=== PATIENT | female | born 1945 | race Caucasian/White ===

== ENCOUNTER 2021-08-02 07:15 | Observation (INO) | payer MEDICARE ==
[2021-08-01 11:56] LABS: BASOPHILS % (AUTO) 0.6 % (0.0-5.0); EOSINOPHILS % (AUTO) 2.3 % (0.0-8.0); HEMATOCRIT 40.7 % (36-48); LYMPHOCYTES % (AUTO) 47.5 % (21.0-51.0); MEAN CORPUSCULAR HEMOGLOBIN 31.5 pg (27.0-33.0); MEAN CORPUSCULAR HGB CONC 33.4 g/dL (32.0-36.0); MEAN CORPUSCULAR VOLUME 94.2 fL (79-99); MONOCYTES % (AUTO) 6.3 % (3.0-13.0); NEUTROPHILS % (AUTO) 43.2 % (40.0-77.0); PLATELET COUNT (AUTO) 177 K/uL (130-400); RED BLOOD CELL COUNT(AUTO) 4.32 MIL/uL (4.00-5.50); RED CELL DISTRIBUTION WIDTH 13.3 % (11.0-15.5); WHITE BLOOD COUNT (AUTO) 6.9 K/uL (4.8-10.8)
[2021-08-01 12:04] LABS: CREATININE 1.1 mg/dL (0.5-1.5); POTASSIUM 4.7 mmol/L (3.5-5.1)
[2021-08-01 12:21] LABS: INR 1.03 (0.85-1.15); PROTHROMBIN TIME 11.2 SEC (9.6-11.6)
[2021-08-01 12:23] LABS: PARTIAL THROMBOPLASTIN TIME 23.5 SEC (26.3-35.5)
[2021-08-01 13:01] VITALS: BP 134/63
[2021-08-02] VITALS (23 sets, daily range): BP systolic 110–136; BP diastolic 50–92
[~2021-08-02] VITALS: Ht 165.1 cm; Wt 86.3 kg
[~2021-08-02 07:15] MED LIST: CETI10TA57 PO; DICL75TA5 PO; ROSU10TA28 PO; TRAM50TA4 PO; ZOLP10TA2 PO
[2021-08-02] MEDS ORDERED: LACTATED RINGERS 1000ML 1,000 ML IV SCH (08:00)
[2021-08-02] MEDS ORDERED: CEFAZOLIN SODIUM 1 GM VIAL IVP ONE (08:00)
[2021-08-02] MEDS ORDERED: LIDOCAINE PF 100MG/5ML (2%) SYRINGE 5ML ONE (10:03)
[2021-08-02] MEDS ORDERED: FENTANYL CITRATE PF 50 MCG/1 ML 2ML VIAL ONE ×2 (10:04→12:17)
[2021-08-02] MEDS ORDERED: ROCURONIUM 10MG/1ML SYR 10 MG/ML ML ONE (10:04)
[2021-08-02] MEDS ORDERED: GLYCOPYRROLATE 1 MG/5 ML SYRINGE ONE (10:04)
[2021-08-02] MEDS ORDERED: PROPOFOL 10 MG/ML 20ML VIAL IV ONE (10:04)
[2021-08-02] MEDS ORDERED: PROPOFOL 1000 MG/100 ML 100 ML IV ONE ×2 (10:05→12:47)
[2021-08-02] MEDS ORDERED: TRANEXAMIC ACID 1000MG/10ML ONE (10:26)
[2021-08-02] MEDS ORDERED: ONDANSETRON 4MG INJ ONE (10:32)
[2021-08-02] MEDS ORDERED: MIDAZOLAM HCL 1 MG/ML 2ML VIAL ONE (10:33)
[2021-08-02] MEDS ORDERED: FAMOTIDINE 20MG VIAL IV ONE (10:36)
[2021-08-02] MEDS: CEFAZOLIN SODIUM 1 GM VIAL IVP SCH ×3 (11:00→20:51)
[2021-08-02] MEDS: ACETAMINOPHEN 500 MG TABLET PO SCH ×2 (11:30→21:55)
[2021-08-02] MEDS ORDERED: HYDROCODONE/ACETAMINOPHEN 10/325 MG TAB PO PRN (11:30)
[2021-08-02] MEDS ORDERED: 0.9%NACL 1000ML 1,000 ML IV SCH (11:30)
[2021-08-02] MEDS ORDERED: MORPHINE 4 MG SYG IVP PRN (11:30)
[2021-08-02] MEDS ORDERED: HYDROCODONE/ACETAMINOPHEN 5/325 MG TAB PO PRN (11:30)
[2021-08-02] MEDS ORDERED: ONDANSETRON 4MG INJ IVP PRN (11:30)
[2021-08-02] MEDS: TRAMADOL HCL 50 MG TABLET PO SCH ×2 (12:00→18:17)
[2021-08-02] MEDS ORDERED: METOPROLOL TARTRATE 1 MG/ML 5ML VIAL IV ONE ×2 (12:14→14:45)
[2021-08-02] MEDS ORDERED: NEOSTIGMINE 5MG/5ML SYR IV ONE (13:40)
[2021-08-02] MEDS ORDERED: MEPERIDINE-PF 25 MG/ML SYG ONE ×2 (14:37→15:05)
[2021-08-02] MEDS ORDERED: KETOROLAC 15MG/ML VIAL (15MG/ML) ONE (15:06)
[2021-08-02] MEDS ORDERED: CEFAZOLIN SODIUM 1 GM VIAL IVP SCH (16:30)
[2021-08-02] MEDS ORDERED: TRAMADOL HCL 50 MG TABLET PO PRN ×2 (18:30)
[2021-08-02] MEDS: FAMOTIDINE 20MG TAB PO SCH (20:50)
[2021-08-02] MEDS: ASPIRIN 81 MG EC TAB PO SCH (20:50)
[2021-08-02] MEDS ORDERED: ZOLPIDEM TARTRATE 5 MG TAB PO SCH (21:00)
[2021-08-02] MEDS: DICLOFENAC SODIUM 75 MG PO SCH (21:00)
[2021-08-03] MEDS: CEFAZOLIN SODIUM 1 GM VIAL IVP SCH (03:25)
[2021-08-03] MEDS: ACETAMINOPHEN 500 MG TABLET PO SCH ×2 (03:29→11:38)
[2021-08-03 03:41] VITALS: BP 116/58
[2021-08-03 03:54] LABS: HEMATOCRIT 33.3 % (36-48); MEAN CORPUSCULAR HEMOGLOBIN 31.2 pg (27.0-33.0); MEAN CORPUSCULAR HGB CONC 32.1 g/dL (32.0-36.0); MEAN CORPUSCULAR VOLUME 97.1 fL (79-99); RED BLOOD CELL COUNT(AUTO) 3.43 MIL/uL (4.00-5.50); RED CELL DISTRIBUTION WIDTH 13.6 % (11.0-15.5); WHITE BLOOD COUNT (AUTO) 9.8 K/uL (4.8-10.8)
[2021-08-03 04:03] LABS: CREATININE 0.9 mg/dL (0.5-1.5); POTASSIUM 4.1 mmol/L (3.5-5.1)
[2021-08-03 07:39] VITALS: BP 109/63
[2021-08-03] MEDS ORDERED: ROPIVICAINE 250MG+KETOROLAC 15MG+EPINEPHRINE 0.3+CLONIDINE 80 IV PRN ×5 (08:00)
[2021-08-03] MEDS ORDERED: POLYETHYLENE GLYCOL 3350 17 GM POWD.PACK PO SCH (09:00)
[2021-08-03] MEDS: DICLOFENAC SODIUM 75 MG PO SCH (09:00)
[2021-08-03] MEDS: FAMOTIDINE 20MG TAB PO SCH (09:17)
[2021-08-03] MEDS: ASPIRIN 81 MG EC TAB PO SCH (09:17)
[2021-08-03 10:54] VITALS: BP 121/66
[2021-08-03] MEDS ORDERED: HYDROCODONE/ACETAMINOPHEN 5/325 MG TAB PO PRN (12:30)
[2021-08-05] MEDS ORDERED: BISACODYL 10 MG SUPP.RECT RC PRN (11:30)
== END 2021-08-03 14:54 | disposition home or self-care (01) ==
LOC: DAH 07:15 → DAHIP 07:16 → 4BH 16:11
PROVIDERS: ADMIT Orthopaedic Surgery; ATTEND Orthopaedic Surgery
DX: M19.011 Primary osteoarthritis, right shoulder (principal); Z20.822 Contact with and (suspected) exposure to COVID-19; I10 Essential (primary) hypertension; Z79.899 Other long term (current) drug therapy; Z98.890 Other specified postprocedural states
CPT/HCPCS: 23472; 36415 ×2; 73030 ×2; 80048 ×2; 85025; 85027; 85610; 85730; 87635; 87641; 93005; 96374; 96376; 97039; 97161; 97530 ×2; A4215; A4221; A4222; A4223; A4565; A4649 ×4; A4663; A6260; C1776; C9803; G0378 ×23; J0690 ×3; J1885; J2001; J2175 ×2; J2405 ×2; J2704 ×3; J2710; J3010 ×2; J3490 ×5; J7030; J7120 ×2; J2250